=== PATIENT | female | born 1995 | race Caucasian/White ===

== ENCOUNTER 2017-10-09 21:11 | Emergency (ER) | payer OTHER ==
[2017-10-09 21:33] VITALS: BP 110/76; PULSE 81; RESP 17; TEMP 98.1; O2SAT 100
--- NOTE | 2017-10-09 22:28 | ED PDOC ---
Lower Extremity Pain/Injury Time Seen by Provider: 10/09/17 22:17 Chief Complaint (Nursing): Lower Extremity Problem/Injury Chief Complaint (Provider): right foot sore History Per: Patient History/Exam Limitations: no limitations Onset/Duration Of Symptoms: Days (4) Current Symptoms Are (Timing): Still Present Additional Complaint(s): 22 y/o female presents for evaluation of open sore to right foot x 4 days. Patient states she thinks she got it from her sandals rubbing to the area, has been cleaning with hydrogen peroxide and applying medicated bandaids with little relief. + yellow drainage, Patient was seen by her primary doctor today and sent to the ED for further evaluation. Denies fever, nausea/vomiting, chills, numbness/weakness lower extremities Past Medical History Reviewed: Historical Data, Nursing Documentation, Vital Signs Vital Signs: Last Vital Signs Temp 98.1 F 10/09/17 21:30 Pulse 81 10/09/17 21:30 Resp 17 10/09/17 21:30 BP 110/76 10/09/17 21:30 Pulse Ox 100 10/09/17 21:30 - Medical History PMH: No Chronic Diseases - Surgical History Surgical History: No Surg Hx - Family History Family History: States: No Known Family Hx - Living Arrangements Living Arrangements: With Family - Home Medications Home Medications: Ambulatory Orders Medication Instructions Recorded Amoxicillin/Clavulanate [Augmentin 1 tab PO Q12 #19 tab 10/09/17 875 MG-125 MG] - Allergies Allergies/Adverse Reactions: Allergies Allergy/AdvReac Type Severity Reaction Status Date / Time No Known Allergies Allergy Verified 10/09/17 21:33 Review of Systems ROS Statement: Except As Marked, All Systems Reviewed And Found Negative Musculoskeletal: Positive for: Foot Pain Physical Exam - Reviewed Nursing Documentation Reviewed: Yes Vital Signs Reviewed: Yes - Physical Exam Appears: Positive for: Well, Non-toxic, No Acute Distress Pulses-Dorsalis Pedis (L): 2+ Pulses-Dorsalis Pedis (R): 2+ Pulses-Post. Tibialis (L): 2+ Pulses-Post. Tibialis (R): 2+ Extremity: Positive for: Normal ROM, Other (1cm circular open wound noted to medial aspect right 1st MTP; no active drainage, surrounding edema/erythema noted) - ECG O2 Sat by Pulse Oximetry: 100 - Progress ED Course And Treament: wound culture Patient evaluated by podiatry resident on-call; wound dressed. Recommends 10- day course of Augmentin and f/up with Dr. Pack Patient educated on findings and wound care, rx augmentin provided (dose given in ED) Follow up with podiatry Return precautions given Disposition - Clinical Impression Clinical Impression: Wound of right foot - Patient ED Disposition Is Patient to be Admitted: No Counseled Patient/Family Regarding: Studies Performed, Diagnosis, Need For Followup, Rx Given - Disposition Referrals: Per Pack DPM [Staff Provider] - Disposition: Routine/Home Disposition Time: 23:17 Condition: STABLE Prescriptions: Amoxicillin/Clavulanate [Augmentin 875 MG-125 MG] 1 tab PO Q12 #19 tab Instructions: Wound Care Forms: [facility] (Portuguese)
[2017-10-09] MEDS ORDERED: Amoxicillin-Clav 875-125 mg Tab PO STA (23:10)
[2017-10-09] MEDS ORDERED: Amoxicillin-Clav 875-125 mg Tab PO ONE (23:17)
--- NOTE | 2017-10-09 23:40 | CP.PCM.CON ---
History of Present Illness - History of Present Illness History of Present Illness: Podiatry consult note for Dr. Pack, 22 y/o female with no significant past medical history presents for evaluation of a wound to right foot(medial 1st MPJ) x 4 days. Patient states she thinks she got it from her sandals rubbing to the area, has been cleaning with hydrogen peroxide and applying medicated bandaids with little relief. Patient admits to seeing yellow colored drainage from it. Patient saw her PCP earlier and was recommended to go to ED for evaluation. Patient admits to mild pain, denies taking pain medications. Denies fever, nausea/vomiting, chills, numbness/ weakness lower extremities Meds Home Medications: Home Medication List Medication Instructions Recorded Confirmed Type Amoxicillin/Clavulanate [Augmentin 1 tab PO Q12 #19 tab 10/09/17 Rx 875 MG-125 MG] Allergies/Adverse Reactions: Allergies Allergy/AdvReac Type Severity Reaction Status Date / Time No Known Allergies Allergy Verified 10/09/17 21:33 Physical Exam - Constitutional Appears: Well, Non-toxic, No Acute Distress - Head Exam Head Exam: ATRAUMATIC, NORMOCEPHALIC - Extremities Exam Additional comments: Right lower extremity focused exam: Vascular: DP/PT 2/4, Cft <3 secs x5, TG warm to cool, no edema noted, no erythema noted Derm: Superficial wound noted to the medial aspect of the 1st MPJ, 100% granular base, no drainage, macerated wound edges, measuring approximately 1 cm x 1 cm, no drainage noted, no malodor, no probe to bone, no clinical signs of infection Neuro: protective sensation grossly intact Ortho: pain with ROM of the 1st MPJ, pain on palpation to the area of the wound. - Neurological Exam Neurological exam: Alert, Oriented x3 Results - Vital Signs Recent Vital Signs: Last Vital Signs Temp 98.1 F 10/09/17 21:30 Pulse 81 10/09/17 21:30 Resp 17 10/09/17 21:30 BP 110/76 10/09/17 21:30 Pulse Ox 100 10/09/17 23:18 Assessment & Plan - Assessment and Plan (Free Text) Assessment: 22 yo female with no significant past medical history with a superficial circular wound to the medial aspect of the R 1st MPJ secondary to rubbing of the shoe. Plan: Patient seen and evaluated History and plan discussed in detail with the attending, Dr Pack. Patient educated on signs and symptoms of a possible infection Rx augmentin 875 mg bid x 10 days Patient to follow up with Dr. Pack in clinic Patients right foot dressed with bacitracin, DSD surgical shoe dispensed Patient to keep the dressing dry, clean and intact Patient showed verbal understanding Thank you for the consult.
== END 2017-10-10 00:34 | disposition home or self-care (01) ==
LOC: H.ER 21:11
DX: S91.301A Unspecified open wound, right foot, initial encounter (principal)